=== PATIENT | female | born 1980 | race Caucasian/White ===

== ENCOUNTER 2016-11-11 18:39 | Emergency (ER) | payer SELFPAY ==
--- NOTE | 2016-11-11 19:08 | EDM.PDOC ---
ED HPI SEIZURE COMPLAINT - General Stated Complaint: LOW BLOOD SUGAR Time Seen by Provider: 11/11/16 18:40 Source: Reports: Patient, EMS History Limitations: Reports: No limitations - History of Present Illness INITIAL COMMENTS - FREE TEXT/NARRATIVE: 36 years old w f was found unresponsive at home, EMS was called, BS was 36 on arrival, 1 amp of glucagon was given. On arrival, pt was OX3 and refuses any further w/u. Symptom Onset Date: 11/11/16 Symptom Onset Time: 17:50 Timing/Duration: Reports: minutes: Event Occurred (Where): home Location: Reports: generalized Event Symptoms: Reports: denies other symptoms ED ROS GENERAL - Review of Systems Review Of Systems: See Below Constitutional: Reports: no symptoms HEENT: Reports: No symptoms Respiratory: Reports: No Symptoms Cardiovascular: Reports: No symptoms Endocrine: Reports: no symptoms GI/Abdominal: Reports: No symptoms : Reports: no symptoms Musculoskeletal: Reports: no symptoms Skin: Reports: no symptoms Neurological: Reports: No Symptoms Psychiatric: Reports: No symptoms Hematologic/Lymphatic: Reports: no symptoms Immunologic: Reports: no symptoms - Physical Exam Exam: See Below Exam Limited By: No limitations General Appearance: alert, WD/WN, no apparent distress Eye Exam: bilateral eye: abnormal EOM Ears: normal external exam Nose: normal inspection, normal mucosa Throat/Mouth: Normal inspection, Normal lips Head Exam: atraumatic, normocephalic Neck: normal inspection, supple, non-tender Respiratory/Chest: no respiratory distress, lungs clear, normal breath sounds, no accessory muscle use Cardiovascular: normal peripheral pulses, regular rate, rhythm GI/Abdominal: normal bowel sounds, soft, non tender, no organomegaly (Female) Exam: Deferred Rectal (Female) Exam: Deferred Neuro Exam (Abbreviated): alert, oriented, CN II-XII intact, normal cognition, normal gait Back Exam: normal inspection, full range of motion Extremities: normal inspection Psychiatric: normal affect, normal mood Skin Exam: Warm, Dry, Intact, Normal color, No rash Course - Vital Signs Text/Narrative:: 36 years old w f was found unresponsive at home, EMS was called, BS was 36 on arrival, 1 amp of glucagon was given. On arrival, pt was OX3 and refuses any further w/u. PE: Nl Labs: Refused Impression: Episode of hypoglycemia, Signed out AMA Plan: Pt left AMA Last Recorded V/S: Last Vital Signs Temp 36.7 C 11/11/16 18:40 Pulse 72 11/11/16 18:40 Resp 18 11/11/16 18:40 BP 124/84 11/11/16 18:40 Pulse Ox 98 11/11/16 18:40 - Orders/Labs/Meds Orders: Active Orders 24 hr Category Date Time Status HCG QUALITATIVE,URINE [URCHEM] Stat Lab 11/11/16 18:51 Uncollected UA W/MICROSCOPIC [URIN] Stat Lab 11/11/16 18:50 Uncollected Labs: Laboratory Tests 11/11/16 Range/Units 18:44 POC Glucose 87 (80-116) mg/dL Departure - Departure Time of Disposition: 19:05 Disposition: Against Medical Advice 07 Condition: fair Clinical Impression: Hypoglycemia, Noncompliance by refusing intervention or support Referrals: PCP,None [Primary Care Provider] - Forms: ED Department Discharge Additional Instructions: You refused medial labs and tx. Please follwo up with your PMD as soon as possible - My Orders Last 24 Hours: My Active Orders 11/11/16 18:50 UA W/MICROSCOPIC [URIN] Stat 11/11/16 18:51 HCG QUALITATIVE,URINE [URCHEM] Stat - Assessment/Plan Last 24 Hours: My Active Orders 11/11/16 18:50 UA W/MICROSCOPIC [URIN] Stat 11/11/16 18:51 HCG QUALITATIVE,URINE [URCHEM] Stat
[2016-11-11 19:32] VITALS: BP 132/66
== END 2016-11-11 19:15 | disposition left against medical advice (07) ==
LOC: FB.ED 18:39
DX: E16.2 Hypoglycemia, unspecified (principal)
CPT/HCPCS: 82962; 99282; 99284